=== PATIENT | male | born 1990 | race Caucasian/White ===

== ENCOUNTER 2017-01-20 10:50 | Emergency (ER) | payer BC ==
[~2017-01-20] VITALS: Ht 182.9 cm; Wt 80.0 kg
[2017-01-20 10:52] VITALS: BP 165/81; PULSE 84; RESP 15; TEMP 98.4; O2SAT 99
--- NOTE | 2017-01-20 11:03 | PD ---
HPI Chief Complaint: Laceration/Skin Injury Time Seen by Provider: 11:01 Travel History International Travel<30 days: No Contact w/Intl Traveler<30days: No Traveled to known affect area: No History of Present Illness HPI 26-year-old male presents the emergency department with injury to the right lower ear. Patient states he was out with some friends last evening and leaving a bar when he tripped falling forward and hitting the edge table on his right ear. He has no loss of consciousness. He has a laceration to the right lower ear involving the upper part of the earlobe and lower pinna. Pain is currently 6/10. Bleeding is currently controlled. He is up-to-date on his tetanus. He has no known drug allergies. [facility] Social History Alcohol Use: Yes Tobacco Use: No Substance Use: No Allergies-Medications (Allergen,Severity, Reaction): Coded Allergies: No Known Allergies (Unverified , 01/20/17) Reported Meds & Prescriptions Reported Meds & Active Scripts Active No Active Prescriptions or Reported Medications Review of Systems Except as stated in HPI: all other systems reviewed are Neg General / Constitutional: No: Fever Eyes: No: Visual changes HENT: No: Headaches Cardiovascular: No: Chest Pain or Discomfort Respiratory: No: Shortness of Breath Gastrointestinal: No: Abdominal Pain Genitourinary: No: Dysuria Musculoskeletal: No: Pain Skin: Positive Lesions (see history present illness.), No Rash Neurologic: No: Weakness Psychiatric: No: Depression Endocrine: No: Polydipsia Hematologic/Lymphatic: No: Easy Bruising Physical Exam Narrative GENERAL: Patient appears in no acute distress SKIN: Warm and dry. Normal color. Normal turgor. Patient has a 2 cm full- thickness laceration to the lower right pinna/upper earlobe which extends into the lower inner trachus of the ear. Patient has contusion to the scalp behind the ear just over the right mastoid HEAD: Atraumatic. Normocephalic. The area over the mastoid is tender but there is no bony deformity or signs of deep trauma. EYES: Pupils equal and round. No scleral icterus. No injection or drainage. ENT: No nasal bleeding or discharge. Mucous membranes pink and moist. Pharynx is clear. Airway is patent. No dental injury. NECK: Trachea midline. No bony tenderness or step-off. Range of motion is full with mild discomfort in the soft tissues only. Cervical spine is cleared utilizing nexus criteria CARDIOVASCULAR: Regular rate and rhythm. RESPIRATORY: No accessory muscle use. MUSCULOSKELETAL: Extremities without clubbing, cyanosis, or edema. No obvious deformities. NEUROLOGICAL: Awake and alert. No obvious cranial nerve deficits. Motor grossly within normal limits. Five out of 5 muscle strength in the arms and legs. Normal speech. PSYCHIATRIC: Appropriate mood and affect; insight and judgment normal. Data Data Last Documented VS Vital Signs Date Time Temp Pulse Resp B/P Pulse Ox O2 Delivery O2 Flow Rate FiO2 01/20/17 11:04 16 01/20/17 10:52 98.4 84 165/81 99 Orders Bupivacaine Pf 0.5% Inj (Marcaine Pf 0.5 (01/20/17 11:15) MDM Medical Decision Making Medical Screen Exam Complete: Yes Emergency Medical Condition: Yes Differential Diagnosis Trip and fall. Scalp contusion. Right ear laceration. Need for sutures. Narrative Course Laceration is repaired. See procedure note. Sutures should remain in place for the next 7 days. Patient can shower but should not swim or submerge his head until sutures are removed. Patient is to use ice to the area as well as frequent antibiotic ointment. Patient is to use Tylenol and ibuprofen as needed for discomfort. Patient can follow-up sooner if any worsening symptoms develop. Procedures Procedure Narrative LACERATION LOCATION: Right ear lobe LENGTH: 2 cm NUMBER OF STITCHES/LISA: 5 interrupted horizontal mattress, 3 simple interrupted REPAIR: The area of the laceration was prepped with Betadine and sterilely draped. The laceration was infiltrated with 3 mL 0.5% bupivacaine with good anesthetic effect.. The wound was copiously irrigated and explored without evidence of foreign body, tendon injury or neurovascular injury. The wound was closed using 5-0 Ethilon. This was a single layer repair. Antibiotic ointment was applied. The patient was advised to keep the wound clean and dry. Patient tolerated the procedure well. Diagnosis Primary Impression: Laceration of right ear without complication Qualified Code: S01.311A - Laceration of right ear without complication, initial encounter Patient Instructions: General Instructions, Laceration (ED) Additional Instructions: Sutures should remain in place for the next 7 days. Patient can shower but should not swim or submerge his head until sutures are removed. Patient is to use ice to the area as well as frequent antibiotic ointment. Patient is to use Tylenol and ibuprofen as needed for discomfort. Patient can follow-up sooner if any worsening symptoms develop. Med/Other Pt SpecificInfo: No Meds Exist/No RX given, Wound Care Scripts No Active Prescriptions or Reported Meds Disposition: 01 DISCHARGE HOME Condition: Stable Eric Garcia Jan 20, 2017 11:03
[2017-01-20] MEDS ORDERED: BUPIVACAINE HCL PF 0.5% 30 ML VIAL INFIL ONE (11:15)
== END 2017-01-20 11:59 | disposition home or self-care (01) ==
LOC: NEPD 10:50
DX: S01.311A Laceration without foreign body of right ear, initial encounter (principal); W01.190A Fall on same level from slipping, tripping and stumbling with subsequent striking against furniture, initial encounter
CPT/HCPCS: 12011